=== PATIENT | male | born 1990 ===

== ENCOUNTER 2018-05-11 22:25 | Emergency (ER) | payer SELFPAY ==
[2018-05-11 22:26] VITALS: BP 150/108
--- NOTE | 2018-05-11 22:31 | ER Report ---
History and Physical Time Seen By MD: 22:25 Hx. of Stated Complaint: PATIENT PAPO PASSED OUT ON A SIDEWALK, PATIENT BROUGHT IN BY [employer] FOR [facility] CLEARENCE. HPI/ROS CHIEF COMPLAINT: [facility] clearance HISTORY OF PRESENT ILLNESS: 28-year-old male brought in by police, was found passed out facedown on the public streets. Patient admits to heavy alcohol intoxication. Patient denies any injuries or significant past medical history. REVIEW OF SYSTEMS: Respiratory: No cough, no dyspnea. Cardiovascular: No chest pain, no palpitations. Gastrointestinal: No vomiting, no abdominal pain. Musculoskeletal: No back pain. Allergies: Coded Allergies: No Known Drug Allergies (Unverified , 05/11/18) Home Meds No Active Prescriptions or Reported Meds Reviewed Nurses Notes: Yes Old Medical Records Reviewed: Yes Constitutional Vital Sign - Last 24 Hours 05/11/18 22:26 Temp 98.7 Pulse 103 Resp 16 B/P (MAP) 150/108 Pulse Ox 92 Physical Exam Vital signs stable, afebrile, pulse ox normal General Appearance: The patient is alert, has no immediate need for airway protection and no current signs of toxicity. Palpation of the head and neck reveal no tenderness or trauma HEENT: Pupils equal and round no injection. Oropharynx without redness or exudate, mucous members are moist Respiratory: Chest is non tender, lungs are clear to auscultation. Cardiac: regular rate and rhythm Gastrointestinal: Abdomen is soft and non tender, no masses, bowel sounds normal. Musculoskeletal: Neck: Neck is supple and non tender. Extremities have full range of motion and are non tender. No evidence of trauma Skin: No rashes or lesions. DIFFERENTIAL DIAGNOSIS: After history and physical exam differential diagnosis was considered for long-term clearance, alcohol intoxication, polysubstance abuse Medical Decision Making ED Course/Re-evaluation ED Course Patient admitted to an examination room. H&P was done. The differential diagnosis was considered. On clinical examination. Patient has no obvious signs of injury. Patient voices no complaints. Patient has stable vital signs Patient's medically cleared for long-term. Decision to Disposition Date: May 11, 2018 Decision to Disposition Time: 22:30 Depart Departure Latest Vital Signs Vital Signs Date Time Temp Pulse Resp B/P (MAP) Pulse Ox O2 Delivery O2 Flow Rate FiO2 05/11/18 22:26 98.7 103 16 150/108 92 Impression: Primary Impression: Medical clearance for incarceration Additional Impression: Alcohol intoxication Condition: Improved Disposition: HOME OR SELF-CARE New Scripts No Active Prescriptions or Reported Meds Patient Instructions: Alcohol Intoxication (ED) Additional Instructions: Medical cleared for long-term admission Problem Qualifiers Additional Impression: Alcohol intoxication Complication of substance-induced condition: uncomplicated Qualified Codes: F10.920 - Alcohol use, unspecified with intoxication, uncomplicated GILES MOCTEZUMA DO May 11, 2018 22:31
== END 2018-05-11 22:36 | disposition home or self-care (01) ==
LOC: ER 22:33
DX: F10.920 Alcohol use, unspecified with intoxication, uncomplicated (principal)
CPT/HCPCS: 99281

== ENCOUNTER 2018-08-04 00:31 | Emergency (ER) | payer SELFPAY ==
[2018-08-04 00:32] VITALS: BP 135/92
--- NOTE | 2018-08-04 00:40 | ER Report ---
History and Physical Time Seen By MD: 00:34 Hx. of Stated Complaint: PT ARRIVED TO ER WITH [employer]. HERE FOR CORRECTION CLEARANCE HPI/ROS CHIEF COMPLAINT: Retirement clearance, alcohol intoxication HISTORY OF PRESENT ILLNESS: 28-year-old male brought in by [employer] for long-term clearance. Patient denies any significant injury. Patient denies medical problems. Patient has a previous ER presentation. REVIEW OF SYSTEMS: Respiratory: No cough, no dyspnea. Cardiovascular: No chest pain, no palpitations. Gastrointestinal: No vomiting, no abdominal pain. Musculoskeletal: No back pain. Allergies: Coded Allergies: No Known Drug Allergies (Unverified , 05/11/18) Home Meds No Active Prescriptions or Reported Meds Reviewed Nurses Notes: Yes Old Medical Records Reviewed: Yes Hx Substance Use Disorder: No Hx Alcohol Use: Yes Constitutional Vital Sign - Last 24 Hours 08/04/18 00:32 Temp 98.7 Pulse 75 Resp 16 B/P (MAP) 135/92 Pulse Ox 95 O2 Delivery Room Air Physical Exam General Appearance: The patient is alert, has no immediate need for airway protection and no current signs of toxicity. Palpation of the head and neck reveals no tenderness or trauma HEENT: Pupils equal and round no injection. Oropharynx no dental trauma Respiratory: Chest is non tender, lungs are clear to auscultation. No chest wall tenderness Cardiac: regular rate and rhythm Gastrointestinal: Abdomen is soft and non tender, no masses, bowel sounds normal. Musculoskeletal: Neck: Neck is supple and non tender. Extremities have full range of motion and are non tender. Skin: No rashes or lesions. DIFFERENTIAL DIAGNOSIS: After history and physical exam differential diagnosis was considered for alcohol intoxication, long-term clearance, polysubstance abuse Medical Decision Making ED Course/Re-evaluation ED Course Patient was minute to an examination room. H&P was done. The differential diagnosis was considered. On clinical examination. Patient has normal vital signs. There are no findings on examination. Patient's medically cleared for long-term admission. Decision to Disposition Date: Aug 04, 2018 Decision to Disposition Time: 00:39 Depart Departure Latest Vital Signs Vital Signs Date Time Temp Pulse Resp B/P (MAP) Pulse Ox O2 Delivery O2 Flow Rate FiO2 08/04/18 00:32 98.7 75 16 135/92 95 Room Air Impression: Primary Impression: Medical clearance for incarceration Additional Impression: Alcohol intoxication Condition: Improved Disposition: [facility] TO CORRECTION/CORRECTIONAL F New Scripts No Active Prescriptions or Reported Meds Patient Instructions: Alcohol Intoxication (ED) Additional Instructions: Medical cleared for long-term admission Problem Qualifiers Additional Impression: Alcohol intoxication Complication of substance-induced condition: uncomplicated Qualified Codes: F10.920 - Alcohol use, unspecified with intoxication, uncomplicated GILES MOCTEZUMA DO Aug 04, 2018 00:40
== END 2018-08-04 00:45 ==
LOC: ER 00:41
DX: F10.920 Alcohol use, unspecified with intoxication, uncomplicated (principal)
CPT/HCPCS: 99281